=== PATIENT | female | born 2000 | race Caucasian/White ===

== ENCOUNTER 2021-08-02 19:47 | Emergency (ER) | payer OTHER, SELFPAY ==
[2021-08-02 19:54] VITALS: BP 134/85; PULSE 109; RESP 15; TEMP 36.9; O2SAT 98; BMI 38.4
[2021-08-02 20:21] LABS: COVID19 -Nasal RAPID Negative (Negative)
[2021-08-02 22:24] VITALS: BP 144/67; PULSE 88; RESP 20; O2SAT 98
[2021-08-02] MEDS: ACETAMINOPHEN/CODEINE SOLN 5 ML SOLUTION 10 ML PO (23:34)
--- NOTE | 2021-08-03 04:23 | ED.URI ---
HPI - URI/Sore Throat General Chief Complaint: Upper Respiratory Symptoms Stated Complaint: difficulty breathing, sinus infection Time Seen by Provider: 08/02/21 22:26 Source: patient Mode of arrival: Ambulatory Limitations: no limitations History of Present Illness HPI Narrative: 20F nonsmoker with chronic sinus and ENT problems presents with her mother and a chief complaint of many days of runny nose, nasal congestion, sinus pressure with nightly episodes of sore throat and some are sounding cough. She denies fever or chills nor nausea, vomiting or diarrhea. She has seen her doctors and even ear nose and throat and was recently transition from amoxicillin to Augmentin for the treatment of presumed bacterial sinusitis. She has been using [id number] antihistamines and decongestants as well as a prescription for Flonase. She denies any new symptoms or complaints but states that she really has not gotten any better and quite some time. She states that she tends to get worse in the evening with increased sore throat and cough, particularly when laying flat. Related Data Previous Rx's Medication Instructions Recorded promethazine 6.25 mg-codeine 10 5 ml PO Q4-6H PRN #473 ml 08/02/21 mg/5 mL syrup Allergies Allergy/AdvReac Type Severity Reaction Status Date / Time hydrocodone Allergy Verified 08/02/21 19:54 Review of Systems Review of Systems Narrative: GENERAL: See HPI HEENT: See HPI RESPIRATORY: See HPI CARDIOVASCULAR: Denies chest pain, palpitations, orthopnea, edema, GASTROINTESTINAL: Denies nausea, vomiting, abdominal pain, diarrhea, constipation, melena. : Denies dysuria, frequency, incontinence, hematuria, urinary retention. MUSCULOSKELETAL: denies weakness, joint pain, or bony pain SKIN: Denies rash, skin lesions, or other NEUROLOGIC: Denies weakness, headache, numbness, change in speech, confusion, seizures, incoordination. PSYCHIATRIC: No concerning psychosocial issues. 12 point review of systems is negative except for those stated above Patient History Social History Smoking Status: Unknown if ever smoked Smoking Status: Unknown if ever smoked alcohol intake frequency: holidays/special occasions only Substance Use Type: does not use Exam Narrative Exam Narrative: GEN: AOx3 and in mild distress EYES: Pupils are equal, round, and reactive to light and accommodation. Extraoccular muscles are intact bilaterally. There is no subconjunctival hemorrhage or exudate. ENT: Clear bilateral nasal drainage. Clear posterior pharyngeal drainage, no tonsillar swelling or exudate, no uvular pointing or soft palate petechiae. Bilateral tympanic membranes are flat, clear with normal landmarks CHEST: Lungs are clear to auscultation bilaterally and free of wheezes, rales, or rhonchi. Heart rate is regular rhythm, there are no murmurs, clicks, rubs, or gallops. There is no chest wall tenderness. ABD: Abdomen is soft and nontender. There is no guarding or rebound. Bowel sounds are normal in all 4 quadrants. There is no mass or organomegaly. EXT: Full painless ROM of all extremities with no loss of sensation or strength. SKIN: Warm, pink, and dry. No erythema or rash Initial Vital Signs Initial Vital Signs: Vital Signs Temperature 98.4 F 08/02/21 19:54 Pulse Rate 109 H 08/02/21 19:54 Respiratory Rate 15 08/02/21 19:54 Blood Pressure 134/85 08/02/21 19:54 Pulse Oximetry 98 08/02/21 19:54 Course Orders Ordered: ED Orders 08/02/21 20:00 COVID19 -Nasal swab/Pre-Proc Stat Discontinued Medications Acetaminophen/Codeine Phosphate (Acetaminophen/Codeine Soln 5 Ml Solution) 10 ml PO NOW ONE Stop: 08/02/21 23:25 Last Admin: 08/02/21 23:34 Dose: 10 ml Documented by: AUPDIKE Vital Signs Vital signs: Vital Signs - 8 hr 08/02/21 22:24 Pulse Rate 88 Respiratory Rate 20 Blood Pressure 144/67 H Pulse Oximetry 98 [facility] - URI/Sore Throat Lab Data Labs: Lab Results 08/02/21 Range/Units 20:00 SARS-CoV-2 (PCR) Negative (Negative) [facility] Narrative Medical decision making narrative: Patient with chronic ENT problems with little response to above-stated [id number] and prescription therapies. She does not have COVID and there is no evidence of a bacterial pneumonia. She has no respiratory distress, no trouble swallowing, managing her airway. We discussed symptomatic treatment modalities and agree that cough suppression is likely to provide some relief. She is given return precautions and questions have been answered to her apparent satisfaction Discharge Plan Departure Patient Disposition: Home Clinical Impression: Upper respiratory infection Qualifiers: URI type: unspecified URI Qualified Code(s): J06.9 - Acute upper respiratory infection, unspecified Instructions: DI for Sinusitis Activity Restrictions/Additional Instructions: *You have been diagnosed with [upper respiratory infection] *What to do: *Please continue to take your regular medications as directed. [ x] New medication prescriptions sent to your pharmacy: [Home town in [facility]] [ ] New medication written as a paper prescription [ ] No new medications given *Please follow up with your primary care provider in 2-3 days, call for an appointment. Let them know you were seen in the Emergency Department and that we ask that you be seen in follow up. We will electronically transmit a record of today's note if your PCP is in our system *If you do not have a primary care provider please contact the [facility] Resource line at [phone]. They will ask some questions about your medical history and help get you set up with a doctor in the community. *Return to Emergency Department if you should have any new, worsening or concerning symptoms, such as [fever greater than 101 F, shaking chills, worsening pain, persistent vomiting or other bothersome symptoms] Prescriptions: New promethazine-codeine 6.25-10 mg/5 mL syrup 5 ml PO Q4-6H PRN (Reason: cough) Qty: 473 RF: 0 Stand Alone Forms: Work Release Note
== END 2021-08-02 23:39 | disposition home or self-care (01) ==
PROVIDERS: Emergency Provider Emergency Medicine
DX: J06.9 Acute upper respiratory infection, unspecified (principal); R05 Cough; Z20.822 Contact with and (suspected) exposure to COVID-19
CPT/HCPCS: 87635; 99283; C9803

== ENCOUNTER 2022-05-31 09:32 | Emergency (ER) | payer OTHER, SELFPAY ==
[2022-05-31 09:36] VITALS: BP 156/69; PULSE 93; RESP 16; TEMP 35.9; O2SAT 100; BMI 38.0
--- NOTE | 2022-05-31 09:42 | DI.RAD.S_ITS ---
PROCEDURE: XR TOE RT MIN 2V INDICATIONS: trauma, dropped heavy granite on great toe...... TECHNIQUE: 3 views of the right 1st toe(s) acquired. COMPARISON: None. FINDINGS: Bones: Comminuted and minimally displaced fracture involving 1st distal phalangeal tuft is seen. No other fracture or dislocation. No suspicious bony lesions. Soft tissues: No suspicious soft tissue densities. IMPRESSION: Minimally displaced 1st distal phalangeal tuft fracture. Dictated by: John Garcia M.D. on 05/31/2022 at 10:21 Approved by: John Garcia M.D. on 05/31/2022 at 10:25
--- NOTE | 2022-05-31 09:47 | DI.RAD.S_ITS ---
PROCEDURE: XR FOOT RT MIN 3V INDICATIONS: trauma TECHNIQUE: 3 views of the foot were acquired. COMPARISON: None. FINDINGS: Bones: No fractures or dislocations. No suspicious bony lesions. Soft tissues: No tibiotalar joint effusion. Achilles tendon appears normal. IMPRESSION: No gross acute right foot fracture or dislocation. Dictated by: John Garcia M.D. on 05/31/2022 at 10:12 Approved by: John Garcia M.D. on 05/31/2022 at 10:13
[2022-05-31] MEDS: ACETAMINOPHEN 325 MG TABLET 975 MG PO (10:19)
[2022-05-31] MEDS: IBUPROFEN 400 MG TABLET 800 MG PO (10:19)
[2022-05-31] MEDS: LIDOCAINE 1% (PF) 12 ML (11:36)
[2022-05-31] MEDS: TET,DIPH,PERTUSS(ACELL),VAC/PF 0.5 ML SYRINGE IM (11:36)
--- NOTE | 2022-05-31 12:45 | ED_ITS ---
HPI - Extremity Injury (Lower) General Chief Complaint: Extremity Injury, Lower Stated Complaint: Stubbed Rt great toe Time Seen by Provider: 05/31/22 10:56 History of Present Illness HPI Narrative: This young woman dropped a large piece of heavy rock on her great toe on the right. She was not injured elsewhere. She does not know her tetanus status. Past medical history otherwise non-contributory. Related Data Previous Rx's Medication Instructions Recorded promethazine 6.25 mg-codeine 10 5 ml PO Q4-6H PRN cough #473 mL 08/02/21 mg/5 mL syrup promethazine 6.25 mg-codeine 10 5 ml PO Q6H PRN cough #118 mL 08/03/21 mg/5 mL syrup cephalexin 500 mg capsule 500 mg PO QID prophylaxis #20 caps 05/31/22 morphine 15 mg immediate release 15 mg PO Q6H PRN pain #14 tabs 05/31/22 tablet Allergies Allergy/AdvReac Type Severity Reaction Status Date / Time hydrocodone Allergy Verified 08/02/21 19:54 Review of Systems Review of Systems Narrative: Specifically she denies fever chills nausea vomiting diarrhea recent illness or other injury. All other systems are negative other than as noted. Patient History Social History Smoking Status: Unknown if ever smoked Smoking Status: Unknown if ever smoked alcohol intake frequency: holidays/special occasions only Substance Use Type: does not use Exam Narrative Exam Narrative: GENERAL: Alert, cooperative and in no distress. HEAD: Atraumatic. Normocephalic. EYES: Sclera are clear without icterus. Extraocular movements are full. ENT: No rhinorrhea NECK: Supple. Full range of motion. GASTROINTESTINAL: Abdomen soft, non-tender, nondistended. EXTREMITIES: No edema, full range of motion. Obvious trauma to the right great toe. See procedure for details. BACK: Normal inspection, no CVA tenderness. NEURO: Nonfocal examination, normal speech. SKIN: No rash or erythema of visible areas PSYCH: Normally oriented. Normal range of affect. Appropriate behavior Initial Vital Signs Initial Vital Signs: Vital Signs Temperature 96.7 F L 05/31/22 09:36 Pulse Rate 93 H 05/31/22 09:36 Respiratory Rate 16 05/31/22 09:36 Blood Pressure 156/69 H 05/31/22 09:36 Pulse Oximetry 100 05/31/22 09:36 Oxygen Delivery Method 05/31/22 09:36 Procedures Laceration Repair Laceration 1: Time of procedure: 12:00 Site: lower extremity Side (If applicable): right Size (cm): 2 Description: stellate Depth: simple, single layer Local Anesthetic: lidocaine 1% Amount of anesthesia used (mL): 9 Pre-repair: wound explored and irrigated extensively Course Course Course Narrative: This is the laceration repair: There is an avulsion of the nail of the right great toe and the nail bed injury. After careful cleansing with Betadine after digital block and local infiltr ation with 1% plain lidocaine I cleansed the when wound carefully with Betadine. The nail was completely removed and then the nail bed was repaired with 2 4-0 chromic gut sutures simple interrupted. The nail was then reinserted into the matrix and sutured in place with 3-0 nylon suture 2 separate sutures. Patient tolerated the procedure well. Orders Ordered: ED Orders 05/31/22 09:42 XR toe RT min 2V Stat 05/31/22 09:47 XR foot RT min 3V Stat Discontinued Medications Acetaminophen (Acetaminophen 325 Mg Tablet) 975 mg PO NOW ONE Stop: 05/31/22 09:48 Last Admin: 05/31/22 10:19 Dose: 975 mg Documented By: JAS Bacitracin (Bacitracin Oint 0.9 Gm Pckt) 1 applic TOP NOW ONE Stop: 05/31/22 12:25 Diphtheria/Tetanus/Acell Pertussis (Tet,Diph,Pertuss(Acell),Vac/Pf 0.5 Ml Syringe) 0.5 ml IM .ONCE ONE Stop: 05/31/22 11:31 Last Admin: 05/31/22 11:36 Dose: 0.5 ml Documented By: MIKI Ibuprofen (Ibuprofen 400 Mg Tablet) 800 mg PO NOW ONE Stop: 05/31/22 09:48 Last Admin: 05/31/22 10:19 Dose: 800 mg Documented By: JAS Lidocaine HCl (Lidocaine 1% 20 Ml) 20 ml INJ INTRA-OP ONE Stop: 05/31/22 11:09 Last Admin: 05/31/22 11:37 Dose: Not Given Documented By: MIKI Vital Signs Vital signs: Vital Signs - 8 hr 05/31/22 09:36 Temperature 96.7 F L Pulse Rate 93 H Respiratory Rate 16 Blood Pressure 156/69 H Pulse Oximetry 100 Oxygen Delivery Method Room Air MDM - Extremity Injury (Lower) Imaging Data Extremity x-ray #1: Radiologist's Impression: IMPRESSION:? Minimally displaced 1st distal phalangeal tuft fracture. ? ? Dictated by: John Garcia M.D. on 05/31/2022 at 10:21 ? ? Approved by: John Garcia M.D. on 05/31/2022 at 10:25 ? MDM Narrative Medical decision making narrative: Complex repair of the nail bed as detailed above. Open fracture is treated with empiric antibiotics as well. Discharge Plan Departure Patient Disposition: Home Clinical Impression: Open toe fracture, Laceration of nail bed of toe, Avulsion of nail Instructions: DI for Toe Fracture, DI for Laceration Repair, DI for Open Fracture Activity Restrictions/Additional Instructions: I am so sorry the broke her toe and cut your toenail bed so badly. To prevent infection I recommend cephalexin 4 times a day for the next 5 days. Carefully washed her foot daily. Take care not to knocked the toenail out of position for a few weeks. After 2 or 3 weeks, the stitches should be removed and the nail allowed to fall off if it does. Use the stiff shoe for walking for comfort. Take Tylenol 1000 mg every 6 hours and ibuprofen 600 mg every 6 hours for pain. If you need stronger pain medication go ahead and take the morphine every 6 hours as needed. Follow-up with your doctor or with transportation solutions manager in the next few weeks. Prescriptions: New cephalexin 500 mg capsule 500 mg PO QID Qty: 20 0RF morphine 15 mg tablet 15 mg PO Q6H PRN (Reason: pain) Qty: 14 0RF No Action promethazine-codeine 6.25-10 mg/5 mL syrup 5 ml PO Q4-6H PRN (Reason: cough) Qty: 473 0RF promethazine-codeine 6.25-10 mg/5 mL syrup 5 ml PO Q6H PRN (Reason: cough) Qty: 118 0RF Referrals: Faye Currie DPM [Physician] -
[2022-05-31] MEDS: BACITRACIN OINT 0.9 GM PCKT 1 APPLIC TOP (12:51)
== END 2022-05-31 12:58 | disposition home or self-care (01) ==
PROVIDERS: Emergency Provider Family Medicine Addiction Medicine
DX: S92.421A Displaced fracture of distal phalanx of right great toe, initial encounter for closed fracture (principal); S91.211A Laceration without foreign body of right great toe with damage to nail, initial encounter; W22.8XXA Striking against or struck by other objects, initial encounter; Z23 Encounter for immunization
CPT/HCPCS: 12001; 73630; 73660; 90471; 99283; 90715

== ENCOUNTER 2023-03-10 12:34 | Emergency (ER) | payer OTHER, SELFPAY ==
[2023-03-10] VITALS (16 sets, daily range): BP systolic 112–127; BP diastolic 54–59; PULSE 44–68; RESP 19; TEMP 36.5; O2SAT 98–100; BMI 31.3
[2023-03-10] MEDS: ONDANSETRON 4 MG/2 ML INJ IV (13:40)
[2023-03-10] MEDS: HYOSCYAMINE 0.125 MG TABLET PO (13:40)
--- NOTE | 2023-03-10 13:40 | ED.ABDPAIN ---
HPI - Abdominal Pain <Ly Sherman PA-C - Last Filed: 03/10/23 16:28> General Chief Complaint: Abdominal Pain Stated Complaint: vomiting/nasea/stomach inflamation Time Seen by Provider: 03/10/23 12:41 Source: patient Mode of arrival: Ambulatory History of Present Illness HPI narrative: 22-year-old female with no reported past medical history presents to the ED with 1 week nausea, vomiting, abdominal pain. Patient states that her symptoms started a week ago with nausea and vomiting, followed by multiple episodes of diarrhea. Patient was seen in the [facility] ED on 03/06/2023, diagnosed with enteritis, discharged home with Reglan. Patient states that since then, the diarrhea has stopped, however patient is still nauseous, unable to hold down anything more than just some Pedialyte. Patient also complains of generalized abdominal pain. Patient states that the Reglan has been providing minimal relief. Patient also states that she was given Zofran in the ED to which the nausea was refractive. Patient denies fever, chills, sore throat, cough, chest pain, shortness of breath, dysuria, lightheadedness, dizziness, syncope. Related Data Home Medications Medication Instructions Recorded Confirmed guanfacine 4 mg tablet,extended 4 mg PO DAILY 03/10/23 03/10/23 release 24 hr metoclopramide HCl 10 mg tablet 10 mg PO TID PRN nausea/vomiting 03/10/23 03/10/23 ubrogepant 50 mg tablet (Ubrelvy) See Rx Instructions .Route .COMPLEX 03/10/23 03/10/23 Previous Rx's Medication Instructions Recorded cefpodoxime 200 mg tablet 200 mg PO BID 10 days #20 tabs 03/10/23 Allergies Allergy/AdvReac Type Severity Reaction Status Date / Time hydrocodone Allergy Verified 03/10/23 14:44 Review of Systems <Ly Sherman PA-C - Last Filed: 03/10/23 16:28> Review of Systems ROS Unobtainable: All systems reviewed & are unremarkable except as noted in HPI and below Constitutional Constitutional: Denies chills, Denies fatigue, Denies fever(s), Denies frequent falls, Denies lethargy and Denies weakness Eyes Eyes: Denies change in vision, Denies eye discharge, Denies irritation and Denies loss of vision ENT Ears, Nose, Mouth, and Throat: Denies change in voice, Denies dizziness, Denies neck pain, Denies sore throat and Denies throat swelling Cardiovascular Cardiovascular: Denies chest pain, Denies irregular heart rhythm, Denies lightheadedness, Denies palpitations, Denies dyspnea, Denies dyspnea on exertion and Denies orthopnea Respiratory Respiratory: Denies cough, Denies dyspnea, Denies dyspnea on exertion and Denies wheezing Gastrointestinal Gastrointestinal: Reports abdominal pain, Denies change in bowel habits, Denies diarrhea, Reports nausea and Reports vomiting Genitourinary Genitourinary: Denies hematuria, Denies flank pain, Denies urinary incontinence and Denies urinary urgency Musculoskeletal Musculoskeletal: Denies back pain, Denies muscle weakness, Denies neck pain, Denies numbness and Denies tingling Integumentary/Breasts Skin/Breast: Denies pruritus, Denies erythema, Denies rash and Denies wounds Neurologic Neurologic: Denies behavioral changes, Denies confusion, Denies dizziness, Denies frequent falls, Denies loss of vision, Denies numbness, Denies tingling and Denies weakness Psychiatric Psychiatric: Denies anxiety, Denies behavioral changes, Denies confusion, Denies depression, Denies homicidal ideation and Denies suicidal ideation Endocrine Endocrine: Denies fatigue, Denies flushing and Denies palpitations Hematologic/Lymphatic Hematologic/Lymphatic: Denies easy bruising Allergic/Immunologic Allergic/Immunologic: Denies urticaria, Denies throat swelling and Denies wheezing Patient History <Ly Sherman PA-C - Last Filed: 03/10/23 16:28> Social History Smoking Status: Unknown if ever smoked Smoking Status: Unknown if ever smoked alcohol intake frequency: holidays/special occasions only Substance Use Type: does not use Exam <Ly Sherman PA-C - Last Filed: 03/10/23 16:28> Narrative Exam Narrative: Const General:?cooperative, healthy appearing and comfortable [facility] Head:?normal to inspection Ears:?hearing grossly normal bilaterally Nose:?external nose normal Face and sinus:?normal facial exam and sinuses nontender Mouth:?oral mucosae normal Throat:?posterior oropharynx normal Eyes General:?appearance normal, both eyes and all related structures Neck Neck:?normal visual inspection and no lymphadenopathy noted Resp Effort & Inspection:?normal respiratory effort Auscultation:?clear to auscultation bilaterally Cardio Rate:?regular rate Rhythm:?regular rhythm GI Abdomen is soft, nondistended. Abdomen is mildly tender to palpation in the epigastric, left lower quadrant. Neuro General:?patient alert, patient awake and patient oriented x3 Initial Vital Signs Initial Vital Signs: Vital Signs Blood Pressure 127/59 L 03/10/23 12:40 <Lefty Reyes DO - Last Filed: 03/10/23 16:48> Initial Vital Signs Initial Vital Signs: Vital Signs Blood Pressure 127/59 L 03/10/23 12:40 Course <Ly Sherman PA-C - Last Filed: 03/10/23 16:28> Orders Ordered: ED Orders 03/10/23 13:45 CBC Auto Diff [Complete Blood Count AUTO DIFF] Stat CMP [Comprehensive Metabolic Panel] Stat Lactate (Lactic Acid) Stat Lipase Stat 03/10/23 13:50 Respiratory Panel (Film Array) Stat 03/10/23 15:01 Urine Culture Stat Urine Microscopic Stat Discontinued Medications Diphenhydramine HCl (Diphenhydramine 50 Mg/Ml Vial) 25 mg IV NOW ONE Stop: 03/10/23 16:08 Last Admin: 03/10/23 16:23 Dose: 25 mg Documented By: NASEEM Hyoscyamine (Hyoscyamine 0.125 Mg Tablet) 0.125 mg PO NOW ONE Stop: 03/10/23 13:22 Last Admin: 03/10/23 13:40 Dose: 0.125 mg Documented By: RB Sodium Chloride (Normal Saline 0.9%) 1,000 mls @ 1,000 mls/hr IV BOLUS ONE Stop: 03/10/23 14:20 Last Infusion: 03/10/23 14:46 Dose: 0 mls/hr Documented By: Admin: 03/10/23 13:41 Dose: 1,000 mls/hr Documented By: RB Ondansetron HCl (Ondansetron 4 Mg/2 Ml Inj) 4 mg IV NOW ONE Stop: 03/10/23 13:22 Last Admin: 03/10/23 13:40 Dose: 4 mg Documented By: RB Promethazine HCl (Promethazine 6.25 Mg/5 Ml Syrup) 12.5 mg PO NOW ONE Stop: 03/10/23 16:08 Last Admin: 03/10/23 16:27 Dose: Not Given Documented By: NASEEM Promethazine HCl (Promethazine 25 Mg Tablet) 12.5 mg PO NOW ONE Stop: 03/10/23 16:16 Last Admin: 03/10/23 16:23 Dose: 12.5 mg Documented By: NASEEM Vital Signs Vital signs: Vital Signs - 8 hr 03/10/23 12:48 03/10/23 12:40 03/10/23 12:41 Temperature 97.7 F Pulse Rate 58 L 68 Respiratory Rate 19 Blood Pressure 127/59 L 127/59 L Pulse Oximetry 99 99 Oxygen Delivery Method Room Air 03/10/23 13:00 03/10/23 13:30 03/10/23 14:00 Temperature Pulse Rate 58 L 52 L 56 L Respiratory Rate Blood Pressure Pulse Oximetry 98 98 99 Oxygen Delivery Method 03/10/23 14:30 03/10/23 15:06 03/10/23 15:07 Temperature Pulse Rate 51 L 48 L 47 L Respiratory Rate Blood Pressure Pulse Oximetry 100 100 100 Oxygen Delivery Method 03/10/23 15:07 03/10/23 15:15 03/10/23 15:30 Temperature Pulse Rate 44 L 47 L Respiratory Rate Blood Pressure 112/59 L Pulse Oximetry 100 99 Oxygen Delivery Method 03/10/23 15:31 03/10/23 15:31 03/10/23 15:45 Temperature Pulse Rate 48 L 49 L Respiratory Rate Blood Pressure 113/54 L Pulse Oximetry 99 100 Oxygen Delivery Method 03/10/23 16:00 03/10/23 16:01 03/10/23 16:01 Temperature Pulse Rate 47 L 48 L Respiratory Rate Blood Pressure 117/57 L Pulse Oximetry 99 100 Oxygen Delivery Method 03/10/23 16:15 Temperature Pulse Rate 50 L Respiratory Rate Blood Pressure Pulse Oximetry 99 Oxygen Delivery Method <Lefty Reyes, - Last Filed: 03/10/23 16:48> Orders Ordered: ED Orders 03/10/23 13:45 CBC Auto Diff [Complete Blood Count AUTO DIFF] Stat CMP [Comprehensive Metabolic Panel] Stat Lactate (Lactic Acid) Stat Lipase Stat 03/10/23 13:50 Respiratory Panel (Film Array) Stat 03/10/23 15:01 Urine Culture Stat Urine Microscopic Stat Discontinued Medications Diphenhydramine HCl (Diphenhydramine 50 Mg/Ml Vial) 25 mg IV NOW ONE Stop: 03/10/23 16:08 Last Admin: 03/10/23 16:23 Dose: 25 mg Documented By: NASEEM Hyoscyamine (Hyoscyamine 0.125 Mg Tablet) 0.125 mg PO NOW ONE Stop: 03/10/23 13:22 Last Admin: 03/10/23 13:40 Dose: 0.125 mg Documented By: CHRISTOFER Sodium Chloride (Normal Saline 0.9%) 1,000 mls @ 1,000 mls/hr IV BOLUS ONE Stop: 03/10/23 14:20 Last Infusion: 03/10/23 14:46 Dose: 0 mls/hr Documented By: Admin: 03/10/23 13:41 Dose: 1,000 mls/hr Documented By: CHRISTOFER Ondansetron HCl (Ondansetron 4 Mg/2 Ml Inj) 4 mg IV NOW ONE Stop: 03/10/23 13:22 Last Admin: 03/10/23 13:40 Dose: 4 mg Documented By: CHRISTOFER Promethazine HCl (Promethazine 6.25 Mg/5 Ml Syrup) 12.5 mg PO NOW ONE Stop: 03/10/23 16:08 Last Admin: 03/10/23 16:27 Dose: Not Given Documented By: NASEEM Promethazine HCl (Promethazine 25 Mg Tablet) 12.5 mg PO NOW ONE Stop: 03/10/23 16:16 Last Admin: 03/10/23 16:23 Dose: 12.5 mg Documented By: NASEEM Vital Signs Vital signs: Vital Signs - 8 hr 03/10/23 12:48 03/10/23 12:40 03/10/23 12:41 Temperature 97.7 F Pulse Rate 58 L 68 Respiratory Rate 19 Blood Pressure 127/59 L 127/59 L Pulse Oximetry 99 99 Oxygen Delivery Method Room Air 03/10/23 13:00 03/10/23 13:30 03/10/23 14:00 Temperature Pulse Rate 58 L 52 L 56 L Respiratory Rate Blood Pressure Pulse Oximetry 98 98 99 Oxygen Delivery Method 03/10/23 14:30 03/10/23 15:06 03/10/23 15:07 Temperature Pulse Rate 51 L 48 L 47 L Respiratory Rate Blood Pressure Pulse Oximetry 100 100 100 Oxygen Delivery Method 03/10/23 15:07 03/10/23 15:15 03/10/23 15:30 Temperature Pulse Rate 44 L 47 L Respiratory Rate Blood Pressure 112/59 L Pulse Oximetry 100 99 Oxygen Delivery Method 03/10/23 15:31 03/10/23 15:31 03/10/23 15:45 Temperature Pulse Rate 48 L 49 L Respiratory Rate Blood Pressure 113/54 L Pulse Oximetry 99 100 Oxygen Delivery Method 03/10/23 16:00 03/10/23 16:01 03/10/23 16:01 Temperature Pulse Rate 47 L 48 L Respiratory Rate Blood Pressure 117/57 L Pulse Oximetry 99 100 Oxygen Delivery Method 03/10/23 16:15 Temperature Pulse Rate 50 L Respiratory Rate Blood Pressure Pulse Oximetry 99 Oxygen Delivery Method MDM - Abdominal Pain <Ly Sherman PA-C - Last Filed: 03/10/23 16:28> Lab Data 03/10/23 13:45 03/10/23 13:45 Labs: Lab Results 03/10/23 03/10/23 03/10/23 Range/Units 13:45 13:45 13:45 WBC 9.4 (4.5-11.0) X10^3/uL RBC 4.82 (4.0-5.2) X10^6/uL Hgb 12.4 (12.0-16.0) g/dL Hct 36.9 (36-46) % MCV 76.6 L (80-100) fL MCH 25.8 L (26-34) PG MCHC 33.6 (30-36) % RDW 14.5 (11.6-14.8) % Plt Count 321 (150-400) X10^3/uL Neut % (Auto) 57.4 (50-75) % Lymph % (Auto) 30.3 (25-40) % Crenshaw % (Auto) 6.8 (3-14) % Eos % (Auto) 4.7 H (2-4) % Baso % (Auto) 0.8 (0-2) % Neut # (Auto) 5400 (8366-3641) /uL Lymph # (Auto) 2800 (5123-5180) /uL Crenshaw # (Auto) 600 (0-900) /uL Eos # (Auto) 400 (0-450) /uL Baso # (Auto) 100 (0-100) /uL Sodium 139 (137-145) mmol/L Potassium 3.8 (3.4-5.1) mmol/L Chloride 106 (98-107) mmol/L Carbon Dioxide 23 (22-32) mmol/L BUN 7 (7-17) mg/dL Creatinine 0.59 (0.52-1.04) mg/dL Estimated GFR > 60 (>60) mL/min BUN/Creatinine Ratio 11.9 (6-22) Glucose 101 H (70-100) mg/dL Lactate 0.9 (0.7-2.1) mmol/L Calcium 9.2 (8.4-10.2) mg/dL Total Bilirubin 0.3 (0.2-1.3) mg/dL AST 19 (14-36) IU/L ALT 22 (<35) IU/L Alkaline Phosphatase 56 (38-126) U/L Total Protein 7.5 (6.3-8.2) g/dL Albumin 4.2 (3.5-5.0) g/dL Globulin 3.3 (1.7-4.1) g/dL Albumin/Globulin Ratio 1.3 (1.0-2.8) Lipase 159 (23-300) U/L Urine RBC (0-5/HPF) Urine WBC (0-5/HPF) Ur Squamous Epith Cells (0-5/HPF) Urine Bacteria (None) Chlamy pneumoniae PCR (Not Detect) Adenovirus (PCR) (Not Detect) B. pertussis DNA (PCR) (Not Detecte) B.parapertussis DNA PCR (Not Detecte) Coronavirus OC43 (PCR) (Not Detect) Coronavirus HKU1 (PCR) (Not Detect) Coronavirus 229E (PCR) (Not Detect) SARS-CoV-2 (PCR) (Not Detecte) Coronavirus NL63 (PCR) (Not Detect) Human Metapneumovir PCR (Not Detect) Influenza Type A (PCR) (Not Detect) Influenza Type B (PCR) (Not Detect) M. pneumoniae (PCR) (Not Detect) Parainfluenza 1 (PCR) (Not Detect) Parainfluenza 2 (PCR) (Not Detect) Parainfluenza 3 (PCR) (Not Detect) Parainfluenza 4 (PCR) (Not Detect) RSV (PCR) (Not Detect) Entero/Rhino (PCR) (Not Detect) 03/10/23 03/10/23 Range/Units 13:50 15:01 WBC (4.5-11.0) X10^3/uL RBC (4.0-5.2) X10^6/uL Hgb (12.0-16.0) g/dL Hct (36-46) % MCV (80-100) fL MCH (26-34) PG MCHC (30-36) % RDW (11.6-14.8) % Plt Count (150-400) X10^3/uL Neut % (Auto) (50-75) % Lymph % (Auto) (25-40) % Crenshaw % (Auto) (3-14) % Eos % (Auto) (2-4) % Baso % (Auto) (0-2) % Neut # (Auto) (8134-3621) /uL Lymph # (Auto) (9993-2457) /uL Crenshaw # (Auto) (0-900) /uL Eos # (Auto) (0-450) /uL Baso # (Auto) (0-100) /uL Sodium (137-145) mmol/L Potassium (3.4-5.1) mmol/L Chloride (98-107) mmol/L Carbon Dioxide (22-32) mmol/L BUN (7-17) mg/dL Creatinine (0.52-1.04) mg/dL Estimated GFR (>60) mL/min BUN/Creatinine Ratio (6-22) Glucose (70-100) mg/dL Lactate (0.7-2.1) mmol/L Calcium (8.4-10.2) mg/dL Total Bilirubin (0.2-1.3) mg/dL AST (14-36) IU/L ALT (<35) IU/L Alkaline Phosphatase (38-126) U/L Total Protein (6.3-8.2) g/dL Albumin (3.5-5.0) g/dL Globulin (1.7-4.1) g/dL Albumin/Globulin Ratio (1.0-2.8) Lipase (23-300) U/L Urine RBC 0-1/hpf (0-5/HPF) Urine WBC 10-30/hpf H (0-5/HPF) Ur Squamous Epith Cells 5-10 /hpf H (0-5/HPF) Urine Bacteria Many (>30) H (None) Chlamy pneumoniae PCR Not detected (Not Detect) Adenovirus (PCR) Not detected (Not Detect) B. pertussis DNA (PCR) Not detected (Not Detecte) B.parapertussis DNA PCR Not detected (Not Detecte) Coronavirus OC43 (PCR) Not detected (Not Detect) Coronavirus HKU1 (PCR) Not detected (Not Detect) Coronavirus 229E (PCR) Not detected (Not Detect) SARS-CoV-2 (PCR) Not detected (Not Detecte) Coronavirus NL63 (PCR) Not detected (Not Detect) Human Metapneumovir PCR Not detected (Not Detect) Influenza Type A (PCR) Not detected (Not Detect) Influenza Type B (PCR) Not detected (Not Detect) M. pneumoniae (PCR) Not detected (Not Detect) Parainfluenza 1 (PCR) Not detected (Not Detect) Parainfluenza 2 (PCR) Not detected (Not Detect) Parainfluenza 3 (PCR) Not detected (Not Detect) Parainfluenza 4 (PCR) Not detected (Not Detect) RSV (PCR) Not detected (Not Detect) Entero/Rhino (PCR) Not detected (Not Detect) Point of care testing: Point of Care Testing Test Results Negative Urine Dip Bedside Urine Glucose Negative Bedside Urine Bilirubin - Negative Bedside Urine Ketone - Negative Urine Specific University 1.015 Bedside Urine Occult Blood - Negative Bedside Urine pH 7.5 Bedside Urine Protein - Negative Bedside Urine Urobilinogen - Negative Bedside Urine Nitrite - Negative Bedside Urine Leukocytes ++ 125 Esterase MDM Narrative Medical decision making narrative: 22-year-old female with no reported past medical history presents to the ED with 1 week nausea, vomiting, abdominal pain. Concern for gastroenteritis versus GERD versus PUD versus pancreatitis versus versus UTI versus other. Will obtain labs, lactate, lipase, UA, urine hCG. Will treat symptoms with IV fluids, Zofran, Levsin. Will reassess. Labs within normal limits. Respiratory swab without acute findings. UA positive for UTI. Patient's symptoms likely due to a pyelonephritis. Prescribed antibiotics. Recommend Reglan and Benadryl for nausea control. Recommend continued hydration. Recommend follow-up with PCP as soon as possible. ED return precautions were discussed. Patient verbalized understanding. <Lefty Reyes, DO - Last Filed: 03/10/23 16:48> Lab Data Labs: Lab Results 03/10/23 03/10/23 03/10/23 Range/Units 13:45 13:45 13:45 WBC 9.4 (4.5-11.0) X10^3/uL RBC 4.82 (4.0-5.2) X10^6/uL Hgb 12.4 (12.0-16.0) g/dL Hct 36.9 (36-46) % MCV 76.6 L (80-100) fL MCH 25.8 L (26-34) PG MCHC 33.6 (30-36) % RDW 14.5 (11.6-14.8) % Plt Count 321 (150-400) X10^3/uL Neut % (Auto) 57.4 (50-75) % Lymph % (Auto) 30.3 (25-40) % Crenshaw % (Auto) 6.8 (3-14) % Eos % (Auto) 4.7 H (2-4) % Baso % (Auto) 0.8 (0-2) % Neut # (Auto) 5400 (9625-5452) /uL Lymph # (Auto) 2800 (9192-7802) /uL Crenshaw # (Auto) 600 (0-900) /uL Eos # (Auto) 400 (0-450) /uL Baso # (Auto) 100 (0-100) /uL Sodium 139 (137-145) mmol/L Potassium 3.8 (3.4-5.1) mmol/L Chloride 106 (98-107) mmol/L Carbon Dioxide 23 (22-32) mmol/L BUN 7 (7-17) mg/dL Creatinine 0.59 (0.52-1.04) mg/dL Estimated GFR > 60 (>60) mL/min BUN/Creatinine Ratio 11.9 (6-22) Glucose 101 H (70-100) mg/dL Lactate 0.9 (0.7-2.1) mmol/L Calcium 9.2 (8.4-10.2) mg/dL Total Bilirubin 0.3 (0.2-1.3) mg/dL AST 19 (14-36) IU/L ALT 22 (<35) IU/L Alkaline Phosphatase 56 (38-126) U/L Total Protein 7.5 (6.3-8.2) g/dL Albumin 4.2 (3.5-5.0) g/dL Globulin 3.3 (1.7-4.1) g/dL Albumin/Globulin Ratio 1.3 (1.0-2.8) Lipase 159 (23-300) U/L Urine RBC (0-5/HPF) Urine WBC (0-5/HPF) Ur Squamous Epith Cells (0-5/HPF) Urine Bacteria (None) Chlamy pneumoniae PCR (Not Detect) Adenovirus (PCR) (Not Detect) B. pertussis DNA (PCR) (Not Detecte) B.parapertussis DNA PCR (Not Detecte) Coronavirus OC43 (PCR) (Not Detect) Coronavirus HKU1 (PCR) (Not Detect) Coronavirus 229E (PCR) (Not Detect) SARS-CoV-2 (PCR) (Not Detecte) Coronavirus NL63 (PCR) (Not Detect) Human Metapneumovir PCR (Not Detect) Influenza Type A (PCR) (Not Detect) Influenza Type B (PCR) (Not Detect) M. pneumoniae (PCR) (Not Detect) Parainfluenza 1 (PCR) (Not Detect) Parainfluenza 2 (PCR) (Not Detect) Parainfluenza 3 (PCR) (Not Detect) Parainfluenza 4 (PCR) (Not Detect) RSV (PCR) (Not Detect) Entero/Rhino (PCR) (Not Detect) 03/10/23 03/10/23 Range/Units 13:50 15:01 WBC (4.5-11.0) X10^3/uL RBC (4.0-5.2) X10^6/uL Hgb (12.0-16.0) g/dL Hct (36-46) % MCV (80-100) fL MCH (26-34) PG MCHC (30-36) % RDW (11.6-14.8) % Plt Count (150-400) X10^3/uL Neut % (Auto) (50-75) % Lymph % (Auto) (25-40) % Crenshaw % (Auto) (3-14) % Eos % (Auto) (2-4) % Baso % (Auto) (0-2) % Neut # (Auto) (1261-0287) /uL Lymph # (Auto) (5829-5488) /uL Crenshaw # (Auto) (0-900) /uL Eos # (Auto) (0-450) /uL Baso # (Auto) (0-100) /uL Sodium (137-145) mmol/L Potassium (3.4-5.1) mmol/L Chloride (98-107) mmol/L Carbon Dioxide (22-32) mmol/L BUN (7-17) mg/dL Creatinine (0.52-1.04) mg/dL Estimated GFR (>60) mL/min BUN/Creatinine Ratio (6-22) Glucose (70-100) mg/dL Lactate (0.7-2.1) mmol/L Calcium (8.4-10.2) mg/dL Total Bilirubin (0.2-1.3) mg/dL AST (14-36) IU/L ALT (<35) IU/L Alkaline Phosphatase (38-126) U/L Total Protein (6.3-8.2) g/dL Albumin (3.5-5.0) g/dL Globulin (1.7-4.1) g/dL Albumin/Globulin Ratio (1.0-2.8) Lipase (23-300) U/L Urine RBC 0-1/hpf (0-5/HPF) Urine WBC 10-30/hpf H (0-5/HPF) Ur Squamous Epith Cells 5-10 /hpf H (0-5/HPF) Urine Bacteria Many (>30) H (None) Chlamy pneumoniae PCR Not detected (Not Detect) Adenovirus (PCR) Not detected (Not Detect) B. pertussis DNA (PCR) Not detected (Not Detecte) B.parapertussis DNA PCR Not detected (Not Detecte) Coronavirus OC43 (PCR) Not detected (Not Detect) Coronavirus HKU1 (PCR) Not detected (Not Detect) Coronavirus 229E (PCR) Not detected (Not Detect) SARS-CoV-2 (PCR) Not detected (Not Detecte) Coronavirus NL63 (PCR) Not detected (Not Detect) Human Metapneumovir PCR Not detected (Not Detect) Influenza Type A (PCR) Not detected (Not Detect) Influenza Type B (PCR) Not detected (Not Detect) M. pneumoniae (PCR) Not detected (Not Detect) Parainfluenza 1 (PCR) Not detected (Not Detect) Parainfluenza 2 (PCR) Not detected (Not Detect) Parainfluenza 3 (PCR) Not detected (Not Detect) Parainfluenza 4 (PCR) Not detected (Not Detect) RSV (PCR) Not detected (Not Detect) Entero/Rhino (PCR) Not detected (Not Detect) Point of care testing: Point of Care Testing Test Results Negative Urine Dip Bedside Urine Glucose Negative Bedside Urine Bilirubin - Negative Bedside Urine Ketone - Negative Urine Specific University 1.015 Bedside Urine Occult Blood - Negative Bedside Urine pH 7.5 Bedside Urine Protein - Negative Bedside Urine Urobilinogen - Negative Bedside Urine Nitrite - Negative Bedside Urine Leukocytes ++ 125 Esterase Discharge Plan Departure Patient Disposition: Home Clinical Impression: Pyelonephritis Instructions: DI for Kidney Infection Activity Restrictions/Additional Instructions: You were evaluated in the ED today for nausea and vomiting. Your labs were normal. Your respiratory swab was also normal. Your urine shows a infection for which you are being prescribed antibiotics. Please complete the full course of antibiotics as prescribed. You may take Reglan and Benadryl for nausea. The nausea will justice once the antibiotics get a chance to kick in over the next 2 days. Please continue to stay well hydrated. Please follow-up with your PCP as soon as possible. Return to the ED if your symptoms worsen, you are unable to keep down fluids or solids, you experience fever, chills. Prescriptions: New cefpodoxime 200 mg tablet 200 mg PO BID 10 Days Qty: 20 0RF Rx Instructions: must administer with a meal/food No Action metoclopramide HCl 10 mg tablet 10 mg PO TID PRN (Reason: nausea/vomiting) Patient Comments: Take 1 tablet (10 mg total) by mouth 3 (three) times a day as needed (nausea/vomiting) for up to 10 days guanfacine 4 mg tablet extended release 24 hr 4 mg PO DAILY Patient Comments: Take 1 tablet by mouth daily Ubrelvy 50 mg tablet See Rx Instructions .ROUTE .COMPLEX Patient Comments: Take one tablet by mouth, may repeat one dose 2 hours later if needed Rx Instructions: Take one tablet by mouth, may repeat one dose 2 hours later if needed. Stand Alone Forms: Patient Portal/API, Work Release Note <Lefty Reyes DO - Last Filed: 03/10/23 16:48> Cosign ED Attending Coswayneature Attestation: I was immediately available in the department for consultation. Documentation has been reviewed. I agree with assessment and plan.
[2023-03-10] MEDS: SODIUM CHLORIDE 0.9% 1,000 ML 1000 ML IV (13:41)
[2023-03-10 13:53] LABS: Add Manual Diff / Slide Review NO; Basophils Absolute Auto 100 /uL (0-100); Basophils Percent Auto 0.8 % (0-2); Eosinophils Absolute Auto 400 /uL (0-450); Eosinophils Percent Auto 4.7 % (2-4); Hematocrit 36.9 % (36-46); Hemoglobin 12.4 g/dL (12.0-16.0); Lymphocytes Absolute Auto 2800 /uL (1100-4500); Lymphocytes Percent Auto 30.3 % (25-40); Mean Corpuscular HGB Conc 33.6 % (30-36); Mean Corpuscular Hemoglobin 25.8 PG (26-34); Mean Corpuscular Volume 76.6 fL (80-100); Monocytes Absolute Auto 600 /uL (0-900); Monocytes Percent Auto 6.8 % (3-14); Neutrophils Absolute Auto 5400 /uL (1500-7000); Neutrophils Percent Auto 57.4 % (50-75); Platelet Count 321 X10^3/uL (150-400); Red Blood Cell Count 4.82 X10^6/uL (4.0-5.2); Red Cell Distribution Width 14.5 % (11.6-14.8); White Blood Cell Count 9.4 X10^3/uL (4.5-11.0)
[2023-03-10 14:11] LABS: Alanine Aminotransferase 22 IU/L (<35); Albumin 4.2 g/dL (3.5-5.0); Albumin Globulin Ratio 1.3 (1.0-2.8); Alkaline Phosphatase 56 U/L (38-126); Aspartate Aminotransferase 19 IU/L (14-36); BUN Creatinine Ratio 11.9 (6-22); Bilirubin Total 0.3 mg/dL (0.2-1.3); Blood Urea Nitrogen 7 mg/dL (7-17); Calcium 9.2 mg/dL (8.4-10.2); Carbon Dioxide 23 mmol/L (22-32); Chloride 106 mmol/L (98-107); Estimated Glomerular Filt Rate > 60 mL/min (>60); Globulin 3.3 g/dL (1.7-4.1); Glucose 101 mg/dL (70-100); HEMOLYSIS < 15 (0-50); Lactate (Lactic Acid) 0.9 mmol/L (0.7-2.1); Lipase 159 U/L (23-300); Potassium 3.8 mmol/L (3.4-5.1); Sodium 139 mmol/L (137-145); Total Protein 7.5 g/dL (6.3-8.2)
[2023-03-10 15:17] LABS: Adenovirus Not Detected (Not Detect); B. parapertussis Not Detected (Not Detecte); Bordetella pertussis Not Detected (Not Detecte); Chlamydophila pneumoniae Not Detected (Not Detect); Coronavirus 229E Not Detected (Not Detect); Coronavirus HKU1 Not Detected (Not Detect); Coronavirus NL 63 Not Detected (Not Detect); Coronavirus OC43 Not Detected (Not Detect); Human Metapneumovirus Not Detected (Not Detect); Human Rhinovirus/Enterovirus Not Detected (Not Detect); Influenza A Not Detected (Not Detect); Influenza B Not Detected (Not Detect); Mycoplasma pneumoniae Not Detected (Not Detect); Parainfluenza Virus 1 Not Detected (Not Detect); Parainfluenza Virus 2 Not Detected (Not Detect); Parainfluenza Virus 3 Not Detected (Not Detect); Parainfluenza Virus 4 Not Detected (Not Detect); Respiratory Syncytial Virus Not Detected (Not Detect); SARS- CoV-2 Not Detected (Not Detecte)
[2023-03-10 16:15] LABS: Bacteria Urine Many (>30); RBC Urine 0-1/HPF (0-5/HPF); Squamous Epithelial Cell Urine 5-10 /HPF (0-5/HPF); WBC Urine 10-30/HPF (0-5/HPF)
[2023-03-10] MEDS: PROMETHAZINE 25 MG TABLET 12.5 MG PO (16:23)
[2023-03-10] MEDS: diphenhydrAMINE 50 MG/ML VIAL 25 MG IV (16:23)
== END 2023-03-10 16:40 | disposition home or self-care (01) ==
PROVIDERS: Emergency Provider Student in an Organized Health Care Education/Training Program
DX: N12 Tubulo-interstitial nephritis, not specified as acute or chronic (principal); R11.2 Nausea with vomiting, unspecified; R10.9 Unspecified abdominal pain; Z20.822 Contact with and (suspected) exposure to COVID-19
CPT/HCPCS: 36415; 80053; 81003; 81015; 81025; 83605; 83690; 85025; 87086; 87633; 93005; 96361; 96374; 96375; 99284; J1200; J2405

== ENCOUNTER → 2023-10-14 11:23 | Outpatient (CLI) | payer OTHER, SELFPAY ==
[2023-10-15 15:37] LABS: Candida species Positive (Negative); Gardnerella vaginalis Negative (Negative); Trichomoas vaginalis Negative (Negative)
== END ==
PROVIDERS: PCP Family Medicine; Visit Provider Obstetrics & Gynecology
DX: N89.8 Other specified noninflammatory disorders of vagina (principal)
CPT/HCPCS: 87480; 87510; 87660